=== PATIENT | male | born 1995 | race Two or more races ===

== ENCOUNTER 2021-03-08 13:42 | Emergency (ER) | payer OTHER ==
[~2021-03-08] VITALS: Ht 177.8 cm; Wt 79.9 kg
[2021-03-08] MEDS ORDERED: FAMOTIDINE 20 MG/2 ML VIAL IVP ONE (15:15)
[2021-03-08] MEDS ORDERED: IV NORMAL SALINE 1000ML BAG 1,000 ML IV SCH (15:15)
--- NOTE | 2021-03-08 15:16 | PHYS DOC ---
Past Medical History Past Medical History: No Pertinent History Past Surgical History: No Surgical History Smoking Status: Never Smoker Alcohol Use: Occasionally Drug Use: None General Adult EDM: Chief Complaint: NAUSEA/VOMITING/DIARRHEA HPI: HPI: Patient is a 25-year-old male that presents today with nausea and vomiting. Patient states the symptoms started about 4 days ago, and he is unable to keep any by mouth fluids down patient states that when he drinks or eats something about 3 hours later he vomits. He states this has been ongoing over the last 4 days, he states his last bowel movement was about 4 days ago he has had a small amount of stool out today but not his normal. He denies chest pain, shortness of breath, fever, painful urination, frequency in urination, abdominal pain, or diarrhea. She does not recall eating anything that could have caused him to have any nausea or vomiting. Patient denies any past medical history of any GI disorders. Review of Systems: Review of Systems: Constitutional: Denies fever or chills. [] Eyes: Denies change in visual acuity. [] HENT: Denies nasal congestion or sore throat. [] Respiratory: Denies cough or shortness of breath. [] Cardiovascular: Denies chest pain or edema. [] GI: Nausea and vomiting denies abdominal pain, bloody stools or diarrhea. [] : Denies dysuria. [] Musculoskeletal: Denies back pain or joint pain. [] Integument: Denies rash. [] Neurologic: Denies headache, focal weakness or sensory changes. [] Endocrine: Denies polyuria or polydipsia. [] Lymphatic: Denies swollen glands. [] Psychiatric: Denies depression or anxiety. [] Heart Score: C/O Chest Pain: N/A Risk Factors: Risk Factors: DM, Current or recent (<one month) smoker, HTN, HLP, family history of CAD, obesity. Risk Scores: Score 0 - 3: 2.5% MACE over next 6 weeks - Discharge Home Score 4 - 6: 20.3% MACE over next 6 weeks - Admit for Clinical Observation Score 7 - 10: 72.7% MACE over next 6 weeks - Early Invasive Strategies Allergies: Allergies: Allergies Coded Allergies Type Severity Reaction Last Updated Verified No Known Drug Allergies 03/08/21 No Physical Exam: PE: Constitutional: Well developed, well nourished, no acute distress, non-toxic appearance. [] HENT: Normocephalic, atraumatic, bilateral external ears normal, oropharynx moist, no oral exudates, nose normal. [] Eyes: PERRLA, EOMI, conjunctiva normal, no discharge. [] Neck: Normal range of motion, no tenderness, supple, no stridor. [] Cardiovascular:Heart rate regular rhythm, no murmur [] Lungs & Thorax: Bilateral breath sounds clear to auscultation [] Abdomen: Bowel sounds normal, soft, no tenderness, no masses, no pulsatile masses. [] Skin: Warm, dry, no erythema, no rash. [] Back: No tenderness, no CVA tenderness. [] Extremities: No tenderness, no cyanosis, no clubbing, ROM intact, no edema. [] Neurologic: Alert and oriented X 3, normal motor function, normal sensory function, no focal deficits noted. [] Psychologic: Affect normal, judgement normal, mood normal. [] Current Patient Data: Labs: Laboratory Tests Test 03/08/21 15:14 03/08/21 16:35 White Blood Count 7.6 x10^3/uL Red Blood Count 4.92 x10^6/uL Hemoglobin 14.5 g/dL Hematocrit 41.2 % Mean Corpuscular Volume 84 fL Mean Corpuscular Hemoglobin 29 pg Mean Corpuscular Hemoglobin Concent 35 g/dL Red Cell Distribution Width 13.0 % Platelet Count 279 x10^3/uL Neutrophils (%) (Auto) 59 % Lymphocytes (%) (Auto) 31 % Monocytes (%) (Auto) 8 % Eosinophils (%) (Auto) 3 % Basophils (%) (Auto) 0 % Neutrophils # (Auto) 4.5 x10^3/uL Lymphocytes # (Auto) 2.3 x10^3/uL Monocytes # (Auto) 0.6 x10^3/uL Eosinophils # (Auto) 0.2 x10^3/uL Basophils # (Auto) 0.0 x10^3/uL Sodium Level 136 mmol/L Potassium Level 3.9 mmol/L Chloride Level 102 mmol/L Carbon Dioxide Level 30 mmol/L Anion Gap 4 Blood Urea Nitrogen 11 mg/dL Creatinine 0.9 mg/dL Estimated GFR (Cockcroft-Gault) 104.6 BUN/Creatinine Ratio 12 Glucose Level 86 mg/dL Calcium Level 9.0 mg/dL Total Bilirubin 0.8 mg/dL Aspartate Amino Transf (AST/SGOT) 23 U/L Alanine Aminotransferase (ALT/SGPT) 30 U/L Alkaline Phosphatase 67 U/L Total Protein 7.8 g/dL Albumin 4.1 g/dL Albumin/Globulin Ratio 1.1 Lipase 115 U/L Urine Collection Type Unknown Urine Color Yellow Urine Clarity Clear Urine pH 7.0 Urine Specific [place] 1.020 Urine Protein Negative mg/dL Urine Glucose (UA) Negative mg/dL Urine Ketones (Stick) Negative mg/dL Urine Blood Negative Urine Nitrite Negative Urine Bilirubin Negative Urine Urobilinogen Dipstick 2.0 mg/dL Urine Leukocyte Esterase Negative Urine RBC 0 /HPF Urine WBC 0 /HPF Urine Bacteria 0 /HPF Current Medications Medications (Trade) Dose Ordered Sig/Jakub Route PRN Reason Start Time Stop Time Status Last Admin Dose Admin Sodium Chloride 1,000 ml @ 1,000 mls/hr Q1H IV 03/08/21 15:15 03/08/21 16:14 DC 03/08/21 15:22 Famotidine (Pepcid Vial) 20 mg 1X ONCE IVP 03/08/21 15:15 03/08/21 15:16 DC 03/08/21 15:23 Iohexol (Omnipaque 300 Mg/ml) 75 ml 1X ONCE IV 03/08/21 16:00 03/08/21 16:01 DC 03/08/21 15:57 Info (CONTRAST GIVEN -- Rx MONITORING) 1 each PRN DAILY PRN MC SEE COMMENTS 03/08/21 16:00 03/10/21 15:59 Vital Signs: Vital Signs Date Time Temp Pulse Resp B/P (MAP) Pulse Ox O2 Delivery O2 Flow Rate FiO2 03/08/21 17:32 70 18 123/65 (84) 98 Room Air 03/08/21 16:33 76 18 123/65 (84) 98 Room Air 03/08/21 14:50 97.5 71 20 112/63 (79) 99 Room Air 97.5 Vital Signs Date Time Temp Pulse Resp B/P (MAP) Pulse Ox O2 Delivery O2 Flow Rate FiO2 03/08/21 14:50 97.5 71 20 112/63 (79) 99 Room Air 97.5 EKG: EKG: [] Radiology/Procedures: Radiology/Procedures: REASON: ABD PAIN PROCEDURE: CT ABD PELV W/ IV CONTRST ONLY CT ABDOMEN+PELVIS W History: Abdominal pain. Comparison: None. Technique: CT of the abdomen and pelvis with intravenous contrast. Findings: The lung bases are clear. The liver, gallbladder, pancreas, spleen, adrenal glands, and kidneys are unremarkable. The bladder and prostate are within normal limits. The stomach and small bowel are unremarkable. The appendix is at the upper limits of normal for diameter, 6 mm (axial image 59). No periappendiceal inflammatory changes. The colon is unremarkable. There is no abdominopelvic free air or free fluid. No mesenteric edema. No adenopathy. The abdominal pelvic vasculature is unremarkable. Soft tissues are within normal limits. No acute osseous abnormality. Impression: 1. No acute findings in the abdomen and pelvis. The appendix is visualized and measures at the upper limits of normal, 6 mm without periappendiceal fat stranding. Recommend close clinical follow-up if pain refers to the right lower quadrant. ------ Exposure: One or more of the following individualized dose reduction techniques were utilized for this examination: 1. Automated exposure control 2. Adjustment of the mA and/or kV according to patient size 3. Use of iterative reconstruction technique. Electronically signed by: Jesse Augustin MD (03/08/2021 4:34 PM) [facility] [] Course & Med Decision Making: Course & Med Decision Making Pertinent Labs and Imaging studies reviewed. (See chart for details) 1705 reviewed radiological and laboratory results with patient, patient informed there was no acute process on his radiological or laboratory findings. Patient has not had any nausea vomiting while in the department, patient has had no abdominal pain while in the department. We will send patient home because of his nontoxic appearance and he appears stable at this time. We will have him follow a clear liquid diet for the next 24 hours then advance to a brat diet and advanced as tolerated. Patient is to follow-up with his primary care physician next week if symptoms continue. Patient is to return to the emergency department for increased abdominal pain, the inability to keep by mouth fluids down even with the use of Zofran, development of her fever or development of shortness of air. Dragon Disclaimer: Dragon Disclaimer: This electronic medical record was generated, in whole or in part, using a voice recognition dictation system. Departure Departure Impression: Primary Impression: Abdominal pain Qualified Codes: R10.9 - Unspecified abdominal pain Disposition: HOME / SELF CARE / HOMELESS Condition: STABLE Patient Instructions: Abdominal Pain, Clear Liquid Diet Additional Instructions: Clear liquid diet for the next 24 hours, then advance to a brat diet(bananas, rice, applesauce, or toast), and then if no nausea or vomiting then advance as tolerated. Zofran 1 tablet every 6-8 hours as needed for nausea, when taking this medication take 1 tablet wait 30 to 45 minutes and then try room temperature water. And then stick with clear liquids until the nausea is passed. Return to the emergency department for increased abdominal pain that localizes to the right lower quadrant, development of a fever, inability to keep by mouth fluids down or development of chest pain. Follow-up with your primary care physician in 5 to 7 days you are continue to have problems. [facility] [address] [place] [address] [facility] [address] [place] [address] [facility] [address] [facility] [place] [address] [facility] [address] [place] [address] [facility] [address] [place] [address] [facility] [address] [place] [address] [facility] [address] [place] [address] [facility] [address] [place] [address] [facility] [address] [place] [address] [facility] [address] [place] [address] Scripts Ondansetron (ONDANSETRON ODT) 4 Mg Tab.rapdis 1 TAB PO PRN Q6-8HRS, #16 TAB Prov: LYRIC DECKER RESEARCH PROFESSOR 03/08/21 LYRIC DECKER RESEARCH PROFESSOR Mar 08, 2021 15:15
[2021-03-08 15:31] LABS: BASO % 0 % (0-3); EOS # 0.2 x10^3/uL (0.0-0.7); EOS % 3 % (0-3); HEMATOCRIT 41.2 % (39.0-53.0); HEMOGLOBIN 14.5 g/dL (13.0-17.5); LYMPH # 2.3 x10^3/uL (1.0-4.8); LYMPH % 31 % (24-48); MEAN CORPUSCULAR HEMOGLOBIN 29 pg (25-35); MEAN CORPUSCULAR HGB CONC 35 g/dL (31-37); MEAN CORPUSCULAR VOLUME 84 fL (79-100); MONO # 0.6 x10^3/uL (0.0-1.1); MONO % 8 % (0-9); NEUT # 4.5 x10^3/uL (1.8-7.7); NEUT % 59 % (31-73); PLATELET COUNT 279 x10^3/uL (140-400); RED BLOOD COUNT 4.92 x10^6/uL (4.30-5.70); WHITE BLOOD COUNT 7.6 x10^3/uL (4.0-11.0)
[2021-03-08 15:39] LABS: CREATININE 0.9 mg/dL (0.7-1.3); GFR 104.6; POTASSIUM 3.9 mmol/L (3.5-5.1)
[2021-03-08 15:45] LABS: ALBUMIN 4.1 g/dL (3.4-5.0); ALBUMIN/GLOBULIN RATIO 1.1 (1.0-1.7); TOTAL BILIRUBIN 0.8 mg/dL (0.2-1.0); TOTAL PROTEIN 7.8 g/dL (6.4-8.2)
[2021-03-08] MEDS ORDERED: IOHEXOL 300 MG/ML 100ML VIAL. IV ONE (16:00)
[2021-03-08] MEDS ORDERED: CONTRAST GIVEN. MC PRN (16:00)
--- NOTE | 2021-03-08 16:36 | RAD ---
CT ABDOMEN+PELVIS W History: Abdominal pain. Comparison: None. Technique: CT of the abdomen and pelvis with intravenous contrast. Findings: The lung bases are clear. The liver, gallbladder, pancreas, spleen, adrenal glands, and kidneys are u nremarkable. The bladder and prostate are within normal limits. The stomach and small bowel are unremarkable. The appendix is at the upper limits of normal for diame ter, 6 mm (axial image 59). No periappendiceal inflammatory changes. The colon is unremarkable. There is no abdominopelvic free air or free fluid. No mesenteric edema. No adenopathy. The abdominal pelvic vasculature is unremarkable. Soft tissues are within normal limits. No acute oss eous abnormality. Impression: 1. No acute findings in the abdomen and pelvis. The appendix is visualized and measures at the upper limits of normal, 6 mm without periappendiceal fat stranding. Recommend close clinical follow-up if pain refers to the right lower quadrant. ------ Exposure: One or more of the following individualized dose reduction techniques were utilized for thi s examination: 1. Automated exposure control 2. Adjustment of the mA and/or kV according to patient size 3. Use of iterative reconstruction technique. Electronically signed by: Jesse Augustin MD (03/08/2021 4:34 PM) [facility]
[2021-03-08 16:44] LABS: BILIRUBIN,URINE NEGATIVE (NEG); CLARITY,URINE CLEAR; COLOR,URINE YELLOW; NITRITE,URINE NEGATIVE (NEG); PROTEIN,URINE NEGATIVE (NEG-TRACE)
[2021-03-08 16:49] LABS: BACTERIA,URINE 0 /HPF (0-FEW); RBC,URINE 0 /HPF (0-2); WBC,URINE 0 /HPF (0-4)
[2021-03-08] MEDS ORDERED: ONDA4TAB12 PO (17:12)
[2021-03-08 17:32] VITALS: BP 123/65
== END 2021-03-08 17:37 | disposition home or self-care (01) ==
LOC: ER 13:42
DX: R10.9 Unspecified abdominal pain (principal); R11.2 Nausea with vomiting, unspecified
CPT/HCPCS: 36415; 74177; 80053; 81001; 83690; 85025; 96361; 96374; 99285; J3490; J7030; Q9967